=== PATIENT | female | born 1990 | race Caucasian/White ===

== ENCOUNTER 2021-05-26 08:14 | Emergency (ER) | payer OTHER, SELFPAY ==
[2021-05-26 08:20] VITALS: BP 129/84; PULSE 66; RESP 16; TEMP 36.3; O2SAT 99
--- NOTE | 2021-05-26 08:35 | ED.DENTAL ---
HPI - Dental/Oral General Chief complaint: Dental/Oral Stated complaint: Tooth Pain Time Seen by Provider: 05/26/21 08:35 Source: patient Mode of arrival: ambulatory Limitations: no limitations History of Present Illness HPI Narrative: 30-year-old female presents with complaint of left lower dental pain for 4 days. States that she broke a tooth several months ago. Has dental appointment end of July, has called to try to move up appointment but no availability. Denies fever chills. Swelling noted to left side of face. All systems reviewed and negative except as noted above. Related Data Allergies Allergy/AdvReac Type Severity Reaction Status Date / Time Penicillins Allergy Intermediate Swelling Verified 05/26/21 08:34 Review of Systems Review of Systems: CONSTITUTIONAL: Denies fever, chills, or sweats. EYES: Denies visual changes, redness, or discharge. ENT: Denies rhinorrhea, congestion, sore throat, or otalgia. Reports dental pain. CARDIOVASCULAR: Denies chest pain, palpitations, or edema. RESPIRATORY: Denies cough or dyspnea. GASTROINTESTINAL: Denies abdominal pain, nausea, vomiting, or diarrhea. GENITOURINARY: Denies dysuria or hematuria. SKIN: Denies rash or itching. MUSCULOSKELETAL: Denies back pain, joint pain, or myalgia. NEUROLOGIC: Denies headache, numbness, or weakness. PSYCHIATRIC: Denies anxiety or depression. All other systems reviewed are negative, except as documented in HPI. PMFSH Comments At time of signature, agree with nursing past medical, surgical, social and family history. There is no relevant family history pertinent to the presenting complaint. Exam Narrative: GENERAL: This is a well-nourished, well-developed patient, in no apparent distress. HEAD: normocephalic, atraumatic. EYES: PERRL. Sclera clear/white. Vision is grossly intact. EARS: External ears normal, auditory canals clear and without drainage, TMs normal without perforation. Hearing grossly intact. NOSE: External nose normal with no obvious nasal discharge, nares without redness, no rhinorrhea. THROAT: Mucous membranes moist, posterior pharynx clear. The left lower wisdom tooth is broken, no drainage, mild swelling to gums. There is no erythema or no fluctuance concerning for dental abscess.. NECK: Neck supple, non-tender without lymphadenopathy, masses or thyromegaly. CARDIOVASCULAR: Regular rate and rhythm without murmurs, gallops, or rubs. RESPIRATORY: Clear to auscultation. Breath sounds equal bilaterally. No wheezes, rales, or rhonchi. GASTROINTESTINAL: Abdomen soft, non-tender, nondistended. Bowel sounds are active. No hepato-splenomegaly, or palpable masses. No guarding. SKIN: warm, Dry, intact with no suspicious lesions or rash, good texture and turgor. NEURO: awake, alert, and oriented to person, place and time. There were no obvious focal neurologic abnormalities. EXTREMITIES: No joint tenderness, effusion, or edema noted. No calf tenderness. Negative Homans sign bilaterally. BACK: Nontender without deformity. No CVA tenderness. Course Course Level of Care: Express Care Visit Vital Signs Vital signs: Reviewed MDM - Dental/Oral MDM Narrative Medical decision making narrative: Patient is aware of diagnosis, understands and agrees to treatment plan. Anticipatory guidance given. Patient agrees to follow-up as directed and is aware of reasons to seek care at the emergency department. Portions of this record may have been created with voice recognition software Differential Diagnosis Differential diagnosis: Likely gingival abscess, dental caries, toothache, dental abscess and fracture of tooth Discharge Plan Discharge Clinical Impression: Pain, dental Patient Disposition: Home, Self-Care Condition: Stable Instructions: Antibiotic Form, Toothache (ED) Additional Instructions: Take medications as prescribed. Complete antibiotic course. Apply ice as needed. See dentist at next available appointment Prescriptions
== END 2021-05-26 08:45 | disposition home or self-care (01) ==
PROVIDERS: Emergency Provider Nurse Practitioner Family; PCP Emergency Medicine
DX: K08.89 Other specified disorders of teeth and supporting structures (principal)
CPT/HCPCS: 99213; G0463

== ENCOUNTER 2021-06-10 04:50 | Emergency (ER) | payer OTHER, SELFPAY ==
[2021-06-10 04:59] VITALS: BP 151/100; PULSE 94; RESP 20; TEMP 36.4; O2SAT 100
--- NOTE | 2021-06-10 05:32 | ED.BACK ---
HPI - Back Pain/Injury General Chief Complaint: Back Pain/Injury Stated Complaint: lower back pain, right hip pain Time Seen by Provider: 06/10/21 05:15 Source: patient History of Present Illness HPI Narrative: 30-year-old female presented to the emergency department for evaluation of right lower back pain. Patient states that she was bending over in the shower when she felt some pain in her lower back. Patient describes pain in her right lower back that radiates to her right buttock. Patient denies any radiation of the pain down her leg. Patient denies any associated numbness or weakness. Related Data Allergies Allergy/AdvReac Type Severity Reaction Status Date / Time Penicillins Allergy Intermediate Swelling Verified 06/10/21 05:03 Review of Systems Review of Systems: CONSTITUTIONAL: Denies fever, chills, or sweats. EYES: Denies visual changes, redness, or discharge. ENT: Denies rhinorrhea, congestion, sore throat, or otalgia. CARDIOVASCULAR: Denies chest pain, palpitations, or edema. RESPIRATORY: Denies cough or dyspnea. GASTROINTESTINAL: Denies abdominal pain, nausea, vomiting, or diarrhea. GENITOURINARY: Denies dysuria or hematuria. SKIN: Denies rash or itching. MUSCULOSKELETAL: Lower back pain NEUROLOGIC: Denies headache, numbness, or weakness. All systems reviewed & are unremarkable except as noted in HPI and below Exam Narrative: APPEARANCE: Well appearing, no pain, no distress, well-nourished. HEAD: normocephalic, atraumatic. EYES: PERRLA/EOMI, conjunctivae clear. NECK: Supple. No adenopathy, no masses. RESPIRATORY: Airway patent, respirations nonlabored. Clear to auscultation bilaterally, no rales, rhonchi, wheezing. CARDIOVASCULAR: Regular rate and rhythm without murmurs rubs or gallops. ABDOMINAL: Soft, nontender, nondistended, normal bowel sounds MUSCULOSKELETAL: Moves all extremities. Strength/ROM intact, No edema, No calf tenderness. Minor lower back tenderness to palpation. No midline tenderness. No step-offs, no deformities. NEURO: Alert. Cranial nerves II through XII intact. Good gait. Good coordination SKIN: Warm, dry. Normal Color PSYCHIATRIC: Normal affect/mood. Course Course Emergency Course: Patient was updated on the results of her work-up. All questions concerns were addressed. Vital Signs Vital signs: Vital Signs Temperature 97.6 F 06/10/21 04:59 Pulse Rate 94 06/10/21 04:59 Respiratory Rate 20 06/10/21 04:59 Blood Pressure 151/100 H 06/10/21 04:59 Pulse Oximetry 100 06/10/21 04:59 Temperature 97.6 F 06/10/21 04:59 Pulse Rate 94 06/10/21 04:59 Respiratory Rate 20 06/10/21 04:59 Blood Pressure 151/100 H 06/10/21 04:59 Pulse Oximetry 100 06/10/21 04:59 MDM - Back Pain/Injury Differential Diagnosis Differential diagnosis: Likely lumbar radiculopathy and strain of lumbar region Discharge Plan Discharge Clinical Impression: Back pain Patient Disposition: Home, Self-Care Condition: Stable Instructions: Antibiotic Form, Back Pain (ED) Additional Instructions: Ibuprofen for pain control. Flexeril as needed for muscle spasm. Ira as needed for additional pain control. Have close follow-up with your primary care physician. If you have any worsening symptoms or if you have any questions or concerns and please call or return to the emergency department. Prescriptions: New cyclobenzaprine 10 mg tablet 10 mg PO BID PRN (Reason: muscle spasm) Qty: 14 RF: 0 hydrocodone-acetaminophen 5-325 mg tablet 1 tablet PO Q6H PRN (Reason: pain) Qty: 10 RF: 0 No Action lidocaine HCl [Lidocaine Viscous] 2 % solution 1 applic mucous membrane Q4-6H PRN (Reason: pain) Qty: 100 RF: 0 ibuprofen 800 mg tablet 800 mg PO TID PRN (Reason: pain) Qty: 30 RF: 0 clindamycin HCl 300 mg capsule 300 mg PO Q8H 10 Days Qty: 30 RF: 0 Follow-up/Referrals: Morgan Ellison MD [Primary Care Provider] - Stand Alone Forms: Work/School Release IP
[2021-06-10] MEDS: CYCLOBENZAPRINE HCL 10 MG TABLET PO (06:03)
[2021-06-10] MEDS: HYDROcodone/acetaminophen (*CRX) 5-325 MG TABLET 1 TAB PO (06:03)
[2021-06-10] MEDS: KETOROLAC 30 MG/ML VIAL (*BKC) IM (06:52)
== END 2021-06-10 07:09 | disposition home or self-care (01) ==
PROVIDERS: Emergency Provider Emergency Medicine; PCP Emergency Medicine
DX: M54.50 Low back pain, unspecified (principal)
CPT/HCPCS: 96372; 99283; A9270; J1885

== ENCOUNTER 2021-09-19 10:48 | Emergency (ER) | payer OTHER, SELFPAY ==
[2021-09-19 11:03] VITALS: BP 132/90; PULSE 69; RESP 20; TEMP 36.8; O2SAT 100
--- NOTE | 2021-09-19 11:34 | ED.GENADULT ---
HPI - General Adult General Chief complaint: Ear Stated complaint: sinus pressure/ear swollen Time Seen by Provider: 09/19/21 11:33 Source: patient Mode of arrival: ambulatory Limitations: no limitations History of Present Illness HPI narrative: 30-year-old female patient presents to the [facility] with complaints of right ear pain for the past 2 to 3 days. Patient states she woke up today and the ear was more swollen and tender to the touch. Denies any drainage from the ear itself. Denies any recent swimming. Patient does have 3 earrings noted into her ear at this time. Patient states she has had chills and was running a fever about 100 today. Related Data Allergies Allergy/AdvReac Type Severity Reaction Status Date / Time Penicillins Allergy Intermediate Swelling Verified 06/10/21 05:03 Review of Systems Review of Systems: CONSTITUTIONAL: Denies fever, chills, or sweats. EYES: Denies visual changes, redness, or discharge. ENT: Denies rhinorrhea, congestion, sore throat, positive red and swollen right ear x2 to 3 days CARDIOVASCULAR: Denies chest pain, palpitations, or edema. RESPIRATORY: Denies cough or dyspnea. GASTROINTESTINAL: Denies abdominal pain, nausea, vomiting, or diarrhea. GENITOURINARY: Denies dysuria or hematuria. SKIN: Denies rash or itching. MUSCULOSKELETAL: Denies back pain, joint pain, or myalgia. NEUROLOGIC: Denies headache, numbness, or weakness. PSYCHIATRIC: Denies anxiety or depression. [facility] Past Medical History Medical History (Updated 09/19/21 @ 11:46 by ELA Paniagua) Back pain Eczema Family History Family History (Updated 09/19/21 @ 11:46 by ELA Paniagua) Other Cerebrovascular accident Diabetes mellitus Heart disease Comments At the time of my signature I agree with nursing past medical history, surgical, social, and family history. There is no relevant family history pertinent to the presenting complaint. Exam Narrative: GENERAL: Well-appearing, well-nourished, and in no acute distress. HEAD: Normocephalic, atraumatic. EYES: PERRLA and EOMI. ENT: Nares clear, no rhinorrhea or epistaxis. Mucous membranes moist. Patient has redness and swelling noted to the right ear as compared to the left. It is tender to the touch and feels warm on palpation. No evidence of infection to the ear canal or behind the tympanic membrane. No active draining from the site at this time. Patient does have 3 earrings noted to the right ear. NECK: Supple. No lymphadenopathy CHEST: Clear to auscultation. No respiratory distress. HEART: Regular rate and rhythm. No murmur heard. Normal peripheral pulses. ABDOMEN: Soft, nontender, nondistended, normal active bowel sounds. EXTREMITIES: Normal range of motion. No edema. SKIN: Warm, dry, no rash. NEURO: No focal deficits. Alert and oriented x3. Course Course Level of Care: Express Care Visit Vital Signs Vital signs: Vital Signs Temperature 36.8 C 09/19/21 11:03 Pulse Rate 69 09/19/21 11:03 Respiratory Rate 20 09/19/21 11:03 Blood Pressure 132/90 09/19/21 11:03 Pulse Oximetry 100 09/19/21 11:03 Oxygen Delivery Room Air 09/19/21 11:03 Temperature 36.8 C 09/19/21 11:03 Pulse Rate 69 09/19/21 11:03 Respiratory Rate 20 09/19/21 11:03 Blood Pressure 132/90 09/19/21 11:03 Pulse Oximetry 100 09/19/21 11:03 Oxygen Delivery Room Air 09/19/21 11:03 Vital signs reviewed The patient has been informed that they may have pre-hypertension or Hypertension based on a BP reading in the department. I recommend that the patient call the primary care provider listed on their discharge instructions or a physician of their choice this week to arrange follow up for further evaluation of possible pre-hypertension or Hypertension Medical Decision Making MDM Narrative Medical decision making narrative: Discussed with patient this most likely is due to a cellulitis of the ear. We will discharge her home with an
== END 2021-09-19 11:51 | disposition home or self-care (01) ==
PROVIDERS: Emergency Provider Nurse Practitioner Family; PCP Emergency Medicine
DX: H60.11 Cellulitis of right external ear (principal)
CPT/HCPCS: 99213; G0463

== ENCOUNTER 2022-08-27 20:15 | Emergency (ER) | payer OTHER, SELFPAY ==
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
[2022-08-27 20:24] VITALS: BP 142/93; PULSE 78; RESP 20; TEMP 36.9; O2SAT 100
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
[2022-08-27] MEDS: KETOROLAC 15 MG/ML VIAL (*BKC) IV PUSH (22:19)
[2022-08-27 22:28] LABS: Basophils Absolute Auto 0.1 K/mm3 (0.0-0.1); Basophils Percent Auto 0.5 % (0.2-1.2); Eosinophils Absolute Auto 0.2 K/mm3 (0-0.3); Hematocrit 36.2 % (37.0-47.0); Hemoglobin 11.6 g/dL (12.0-15.0); Immature Granulocyte Absolute 0.03 K/mm3 (0.00-0.031); Immature Granulocyte Percent A 0.3 % (0-0.5); Lymphocytes Absolute Auto 2.28 K/mm3 (0.9-3.2); Mean Corpuscular Hemoglobin 27.2 pg (26-34); Mean Corpuscular Volume 84.8 fl (80-100); Mean Platelet Volume 11.5 fl (7.4-10.4); Monocytes Absolute Auto 0.5 K/mm3 (0.1-0.6); Monocytes Percent Auto 4.9 % (2.6-8.5); Neutrophils Absolute Auto 6.1 K/mm3 (1.3-6.7); Neutrophils Percent Auto 67.3 % (45.5-73.1); Platelet Count Result 249 k/mm3 (150-375); Red Blood Count 4.27 M/mm3 (4.2-5.4); Red Cell Distribution Width 14.3 % (11.5-14.5); White Blood Count 9.1 K/mm3 (4.5-10.0)
[2022-08-27 22:45] LABS: Anion Gap 8 mmol/L (8-16); Blood Urea Nitrogen 17 mg/dL (7-17); Carbon Dioxide 28 mmol/L (22-30); Chloride 103 mmol/L (98-107); Estimated CRCL calculation 94 ml/min; Estimated Glomerular Filt Rate > 60; Glucose 90 mg/dL (65-110); Potassium 4.1 mmol/L (3.4-5.0); Sodium 139 mmol/L (137-145)
--- NOTE | 2022-08-27 23:22 | PC.NURSE ---
Patient taken to CT via w/c at this time.
[2022-08-27 23:36] VITALS: BP 126/76; PULSE 53; RESP 17; TEMP 36.6; O2SAT 97
--- NOTE | 2022-08-27 23:36 | PC.NURSE ---
Assumed care of patient at this time.
== END 2022-08-28 00:36 | disposition home or self-care (01) ==
PROVIDERS: Emergency Provider Physician Assistant
DX: S19.9XXA Unspecified injury of neck, initial encounter (principal); V43.52XA Car driver injured in collision with other type car in traffic accident, initial encounter
CPT/HCPCS: 36415; 70450; 71260; 72125; 74177; 80048; 81025; 85025; 96374; 99284; J1885; Q9967

== ENCOUNTER 2023-05-16 08:02 | Emergency (ER) | payer OTHER, SELFPAY ==
--- NOTE | 2023-05-16 08:06 | ED.URI ---
HPI - URI/Sore Throat General Chief Complaint: Upper Respiratory Infection Stated Complaint: throat pain, chills,fever,cough Time Seen by Provider: 05/16/23 08:06 Source: patient Mode of arrival: ambulatory Limitations: no limitations History of Present Illness HPI Narrative: Patsy is a 32-year-old female patient presenting to the clinic today with complaints of sore throat, chills, fever, and cough x4 days. She reports highest fever was today of 39.5 ? C. has a nonproductive cough. Denies any history of COPD or asthma but does have history of bronchitis. Has had exposure to influenza B. She denies any shortness of breath or chest pain MD elicited complaint: sore throat and nasal congestion Related Data Allergies Allergy/AdvReac Type Severity Reaction Status Date / Time Penicillins Allergy Intermediate Swelling Verified 05/16/23 08:19 Review of Systems Review of Systems: Pertinent positives per HPI. Patient denies any rash, headache, visual changes, dizziness, shortness of breath, chest pain, palpitations, nausea, vomiting, diarrhea, constipation, abdominal pain, or any urinary issues. PMFSH Past Medical History Medical History Back pain Eczema Family History Family History Other Cerebrovascular accident Diabetes mellitus Heart disease Comments At the time of my signature, I reviewed and agree with the nursing past medical, surgical, social, and family history. There is no relevant family history pertinent to the patient complaint. Exam Narrative: General: Well-developed, well nourished, in no apparent distress Head: Normocephalic, atraumatic Eyes: Pupils equally round and reactive to light bilaterally, EOM intact, sclera and conjunctive clear, no discharge, lids normal Ears: TMs intact and clear, ear canals clear, no drainage, grossly hearing normal. Nose: Nares patent, no discharge, no inflammation, no sinus tenderness. Mouth: Oral pharynx without lesions or masses, good dentition, MMM. Neck: Supple, trachea midline, no enlargement of anterior or posterior cervical nodes, no thyroid masses or goiter palpable. Cardio: Regular rate and rhythm, s1 and s2 normal, no murmur appreciated. Resp: Expiratory rhonchi/wheeze, no rales or rubs Course Course Emergency Course: Portions of this record may have been created with voice recognition software. Level of Care: Express Care Visit Vital Signs Vital signs: Vital signs reviewed MDM - URI/Sore Throat MDM Narrative Medical decision making narrative: At the time of visit patient is resting comfortably on the exam table. Patient appears to be nontoxic. Labs: Influenza and strep test was performed. Strep test was negative. Influenza testing was positive for influenza B. Plan: I suspect patient has influenza B with bronchitis. Prescriptions for prednisone and albuterol inhaler was sent to the pharmacy. Supportive measures were discussed with the patient and they voiced understanding discharge instructions and agrees to treatment plan. Return precautions reviewed Differential Diagnosis Differential diagnosis: Likely upper respiratory infection, otitis media, sinusitis, viral infection, bronchitis, influenza, pharyngitis and other (COVID) Discharge Plan Discharge Clinical Impression: Bronchitis, Influenza B Patient Disposition: Home, Self-Care Condition: Stable Instructions: Antibiotic Form, Influenza (ED), Acute Bronchitis (ED) Additional Instructions: Take prescription medications only as prescribed-prednisone and albuterol inhaler May take DayQuil/NyQuil for cold/flu symptoms Cool-mist humidifier at the bedside Increase fluids and stay well hydrated Tylenol/motrin for pain/fever Flonase and OTC antihistamines as directed Vicks vapor rub to open sinuses Sinus rinses for congestion Cepacol spr
[2023-05-16 08:12] VITALS: BP 137/64; PULSE 110; RESP 16; TEMP 39.5; O2SAT 98
== END 2023-05-16 08:33 | disposition home or self-care (01) ==
PROVIDERS: Emergency Provider Nurse Practitioner Family
DX: J40 Bronchitis, not specified as acute or chronic (principal); J10.1 Influenza due to other identified influenza virus with other respiratory manifestations
CPT/HCPCS: 87081; 87804; 87880; 99213; G0463

== ENCOUNTER 2024-07-08 08:04 | Emergency (ER) | payer OTHER, SELFPAY ==
--- NOTE | ~2024-07-08 | XR_ITS ---
EXAMINATION: XR knee RT 3V DATE: 07/08/2024 08:29 INDICATION: Right knee injury post fall 9 days prior TECHNIQUE: AP, lateral and sunrise views of the right knee were obtained COMPARISON: None. FINDINGS: Alignment is normal. No fracture. Joint spaces appear normal on nonweightbearing imaging. Bone islan ds at the medial lateral femoral condyles. Small knee joint effusion. Soft tissue swelling with subcu taneous edema at the anteromedial aspect of the right knee. IMPRESSION: 1. Soft tissue swelling and small joint effusion at the right knee. No acute osseous abnormality. Reviewed, dictated and finalized at location A. IMPRESSION: 1. Soft tissue swelling and small joint effusion at the right knee. No acute os seous abnormality.
[2024-07-08 08:09] VITALS: BP 131/77; PULSE 69; RESP 20; TEMP 36.6; O2SAT 100
--- NOTE | 2024-07-08 08:13 | ED_ITS ---
HPI - Extremity Injury (Lower) General Chief Complaint: Extremity Injury, Lower Stated Complaint: Right Knee Pain Time Seen by Provider: 07/08/24 08:13 Source: patient, RN notes reviewed and old records reviewed Mode of arrival: ambulatory Limitations: no limitations History of Present Illness HPI Narrative: 33 year old female who presents to [facility] with complaints of pain to her right knee after falling over her dog on the 18th of this month. Patient reports that she landed initially on her right hip and right knee and did have some bruising to her right hip but has no further pain to right hip region but continued pain to the right knee..Patient states that she has taken Ibuprofen and Tylenol and also has been applying ice and heat to her to right knee without resolution of her pain. Patient reports that standing and bending her right knee makes pain worse does not increase pain with ambulation but has noted a limp. Patient reports that pain to her right knee is at the lateral top of her knee and it goes across her knee MD complaint: knee injury (right knee pain) Onset (ago): day(s) (9 days) Injury: Right: knee (lateral top of knee going across knee) Type of Injury: blunt Place: home Severity scale (1-10): 3 Exacerbating factors: other (standing) Associated symptoms: swelling and other (pain with bending of knee and with prolonged standing ) Treatments prior to arrival: cold therapy (and heat), NSAIDS and other (Acetaminophen) Related Data Allergies Allergy/AdvReac Type Severity Reaction Status Date / Time Penicillins Allergy Intermediate Swelling Verified 07/08/24 08:16 Review of Systems Review of Systems: CONSTITUTIONAL: Denies fever, chills, or sweats. EYES: Denies visual changes, redness, or discharge. ENT: Denies rhinorrhea, congestion, sore throat, or otalgia. CARDIOVASCULAR: Denies chest pain, palpitations, or edema. RESPIRATORY: Denies cough or dyspnea. GASTROINTESTINAL: Denies abdominal pain, nausea, vomiting, or diarrhea. GENITOURINARY: Denies dysuria or hematuria. SKIN: Denies rash or itching. MUSCULOSKELETAL: Denies back pain,Reports pain to the right knee from fall 9 days, or myalgia. NEUROLOGIC: Denies headache, numbness, or weakness. PSYCHIATRIC: Denies anxiety or depression. All systems reviewed & are unremarkable except as noted in HPI and below PMFSH Past Medical History Medical History Eczema Back pain Family History Family History Other Cerebrovascular accident Diabetes mellitus Heart disease Social History Social History (Updated 07/08/24 @ 09:11 by Ghada Stern NP) Smoking status: Never smoker Alcohol intake: current Alcohol use details: rare social Substance use type: does not use Living arrangements: with family Gender identity (if verbalized by the patient): Female Comments At time of signature, agree with nursing past medical, surgical, social and family history. There is no relevant family history pertinent to the presenting complaint Exam Narrative: GENERAL: Well-appearing, well-nourished, and in no acute distress. HEAD: Normocephalic, atraumatic. EYES: PERRLA and EOMI. ENT: Nares clear, no rhinorrhea or epistaxis. Mucous membranes moist. NECK: Supple.no lymphadenopathy CHEST: Clear to auscultation. No respiratory distress. SAO2 100% on room air HEART: Regular rate and rhythm. No murmur heard. Normal peripheral pulses. ABDOMEN: Soft, nontender, nondistended, normal active bowel sounds. EXTREMITIES: Normal range of motion. some swelling to right knee, pain at lateral upper knee going vertically across right knee, pain with bending and prolonged standing.limp with ambulation SKIN: Warm, dry, no rash. NEURO: No focal deficits. Alert and oriented x3. Course Course Emergency Course: Patient is aware of diagnosis, understands and agrees to treatment plan.? Anticipatory guidance given.? Patient agrees to follow-up as directed and is aware of reasons to seek care at the emergency department. Portions of this record may have been created with voice recognition software Level of Care: Express Care Visit Vital Signs Vital signs: Vital Signs Temperature 36.6 C 07/08/24 08:09 Pulse Rate 69 07/08/24 08:09 Respiratory Rate 20 07/08/24 08:09 Blood Pressure 131/77 07/08/24 08:09 Pulse Oximetry 100 07/08/24 08:09 Oxygen Delivery Room Air 07/08/24 08:09 Temperature 36.6 C 07/08/24 08:09 Pulse Rate 69 07/08/24 08:09 Respiratory Rate 20 07/08/24 08:09 Blood Pressure 131/77 07/08/24 08:09 Pulse Oximetry 100 07/08/24 08:09 Oxygen Delivery Room Air 07/08/24 08:09 Reviewed MDM - Extremity Injury (Lower) Differential Diagnosis Differential diagnosis: Likely acute internal derangement of knee and other (knee pain right, joint effusion right knee ,injury right knee) Medical Records Attestation: I reviewed the patient's medical records. Imaging Data Attestation: I personally reviewed and interpreted this imaging study as follows: My impression: soft tissue swelling and small joint effusion to the right knee Radiologist's impression: [facility] [address] [place] [address] XRay Report Signed Patient: Patsy Wisdom : 1990 MR#: [id number] Age: 33 Acct:[id number] Loc: [facility] ADM Date: 07/08/24Attending Dr: Ordering Physician: Ghada Stern APRN Date of Service: 07/08/24 Procedure(s): XR knee RT 3V Accession Number(s): [id number] cc: Dakota, Shelly Marcos MD; Ghada Stern APRN~ EXAMINATION: XR knee RT 3V DATE: 07/08/2024 08:29 INDICATION: Right knee injury post fall 9 days prior TECHNIQUE: AP, lateral and sunrise views of the right knee were obtained COMPARISON: None. FINDINGS: Alignment is normal. No fracture. Joint spaces appear normal on nonweightbearing imaging. Bone islands at the medial lateral femoral condyles. Small knee joint effusion. Soft tissue swelling with subcutaneous edema at the anteromedial aspect of the right knee. IMPRESSION: 1. Soft tissue swelling and small joint effusion at the right knee. No acute osseous abnormality. Reviewed, dictated and finalized at location A. Please be advised this is a medical document. It is intended for [id number] communication. It is written in medical language and may contain unfamiliar abbreviations or verbiage. Medical documents are intended to carry relevant information, facts as evident, and the clinical opinion of the practitioner at the time of the encounter. This report may have been done utilizing a voice recognition system. Attempts have been made to correct errors. However, there may be uncorrected grammatical, spelling, and recognition errors present. The file time of this note does not necessarily represent the time of service. Dictated By: Srinivasan Roman MD 07/08/24 0850 Signed By: <Electronically signed by Srinivasan Roman MD in OV> Critical Care Time Critical Care Time Critical Care Time: No Discharge Plan Discharge Clinical Impression: Effusion of right knee joint Knee pain, right Qualifiers: Chronicity: acute Qualified Code(s): M25.561 - Pain in right knee Patient Disposition: Home Condition: Stable Instructions: Swollen Knee Joint (ED), Knee Pain (ED) Additional Instructions: Elastic wrap or orthopedic splint as directed for comfort for the next 5-7 days Tylenol for lesser pain Ibuprofen regularly for the next 2-3 days for the inflammation 600 mg 3-4 times daily with food Follow-up with orthopedic surgeon if continued problems Dr Rebel Cummings [phone] Follow-up with PCP if further problems or concerns Ice to the area 20-30 minutes 4-6 times a day Elevate above heart If your symptoms persist, change or worsen significantly before you can contact your personal physician then please, without delay, go to the emergency department for further evaluation. Follow-up with PCP in 7-10 days or sooner if needed Follow up with PCP soon in regards to your blood pressure which is elevated above threshold for referral. Blood pressure above 120/80 may indicate pre- hypertension. 131/77 Patient Language: Estonian Prescriptions: No Action prednisone 20 mg tablet 40 mg PO DAILY 5 Days Qty: 10 0RF albuterol sulfate 90 mcg/actuation HFA aerosol inhaler 2 puff inhalation Q4-6H PRN (Reason: shortness of breath or wheezing) 30 Days Qty: 8.5 0RF Follow-up/Referrals: Dakota,Shelly Marcos MD [Primary Care Provider] - Time of Disposition: 09:06 Quality Bradford Coma Scale Eyes: Open Verbal: Oriented and Alert Motor: Follows Commands Cody Coma Total Score: 15
== END 2024-07-08 09:08 | disposition home or self-care (01) ==
PROVIDERS: Emergency Provider Registered Nurse; PCP Family Medicine
DX: M25.461 Effusion, right knee (principal); M25.561 Pain in right knee
CPT/HCPCS: 73562; 99213; G0463